=== PATIENT | female | born 1980 | race Caucasian/White ===

== ENCOUNTER → 2017-05-04 | Outpatient (CLI) | payer BC, OTHER ==
[~2017-05-04] VITALS: Ht 12.7 cm; Wt 65.8 kg
[~2017-05-04] MED LIST: ZANAFLEX4 MG PO
--- NOTE | ~2017-05-04 | HPC ---
[facility] [place] [address] PAIN MANAGEMENT CONSULTATION Name: IGGY MARQUIS Room #: [facility] [id number] Admission: 05/04/17 Attend Phys: Marco Antonio Renner DO Discharge: Date of : 84 Report #: [id number] THIS REPORT FOR: //name// CC: TEE Renner DATE OF SERVICE: 05/04/2017 DATE OF SERVICE: 05/04/2017 CHIEF COMPLAINT: Low back pain, lower extremity pain and paresthesias. HISTORY OF PRESENT ILLNESS: As you know, the patient is a very pleasant 36-year-old female who has been referred to our service for low back pain, right lower extremity pain and paresthesias. The patient indicates pain began 04/22/2017. The patient states that she had preexisting low back pain for which a Medrol Dosepak and rest and relaxation improved symptoms. Unfortunately, she had a return of symptoms while attempting to toss a full trashcan. This exacerbated her symptoms and she has been left with increasing pain issues. 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 The patient states her pain is periodic, describes the pain as shooting, aching, numbness, tingling, sharp, stabbing and tender, places current pain score 5/10, daily average of 5/10, worst the pain has been is 9/10. The patient states pain is exacerbated with "moving in the wrong way" and climbing stairs. The patient states pain has improved with ice, rest and relaxation. She has been referred to our service to discuss treatment options for suspected lumbar radiculopathy. PAST MEDICAL HISTORY: 1. Anemia. 2. Peptic ulcer disease. PAST SURGICAL HISTORY: 1. section x 3. 2. Cholecystectomy. SOCIAL HISTORY: The patient smokes 1/2 pack tobacco per day. She has done so for 22 years. Denies IV or illicit drug use. Denies any chronic alcohol use. She works as a caregiver, but has been out of work for the past week due to increasing low back pain, lower extremity pain with paresthesias. The patient denies being in litigation in regards to pain. She is not receiving disability benefits. She is accompanied by her significant other who was present in room today. REVIEW OF SYSTEMS: Positive for weight change, fatigue and weakness, kidney [facility] [address] [place] [address] PAIN MANAGEMENT CONSULTATION Name: IGGY MARQUIS Room #: REG CLI Nel#: [id number] Admission: 05/04/17 Attend Phys: Marco Antonio Renner DO Discharge: Date of : 84 Report #: [id number] stones, painful menses, irregular menses, low back pain, right lower extremity pain and paresthesias, chronic anemia. All other review of systems negative per 12-point review of systems other than those listed in history of present illness. Pain impact score 52/70 indicating severe interference of daily activities secondary to pain. ALLERGIES: SULFA, AND REGLAN. CURRENT MEDICATIONS: Tizanidine 4 mg 3 times a day p.r.n. IMAGING: MRI of lumbar spine obtained on 04/29/2017 shows T12-L1 unremarkable, L1-L2 unremarkable, L2-L3 unremarkable, L3-L4 unremarkable, L4-L5, no significant disk bulge protrusion identified. No significant central canal neural foraminal stenosis. L5-S1, small broad based posterior disk bulge with superimposed shallow central disk protrusion abutting the descending S1 nerve roots, left greater than right. Displacement of the left S1 nerve root is noted. PHYSICAL EXAMINATION: VITAL SIGNS: Blood pressure 118/81, pulse is 83, respiratory rate 14, unlabored. The patient is 100% on room air, height 5 feet 5 inches tall, weight 145 pounds, BMI calculated 24.1. GENERAL: Well developed, well nourished, well hydrated 36-year-old female who appears her stated age. She is placing current pain score today at 5/10. HEENT: Normocephalic, atraumatic. Pupils equal, round, reactive to light. Extraocular muscles are intact. Sclerae nonicteric without injection. NEUROLOGIC: Cranial nerves 2-12 grossly intact. Speech is fluent. The patient deemed a good historian. LUNGS: Clear, no wheeze, rhonchi or rales. CARDIOVASCULAR: Regular. No appreciable gallop or rub. ABDOMEN: Soft, nontender, nondistended, normoactive bowel sounds. EXTREMITIES: Show no clubbing, no cyanosis, no edema. MUSCULOSKELETAL: Lower extremity strength appears equal and symmetrical 5/5, intact to light touch from L1 through S2 dermatomes. Deep tendinous reflexes equal and symmetrical at patella and Achilles. Ankle clonus negative. Babinski is negative. Seated straight leg raising negative. Supine straight leg raising positive with S1 distribution. Gait is slightly antalgic. There is slight forward flexed lumbar spine during stance. ASSESSMENT: 1. Symptomatic lumbar radiculopathy. 2. Displacement of lumbar intervertebral disk with radiculopathy. PLAN: [facility] [address] [place] [address] PAIN MANAGEMENT CONSULTATION Name: IGGY MARQUIS Room #: REG CLI Nel#: [id number] Admission: 05/04/17 Attend Phys: Marco Antonio Renner DO Discharge: Date of : 84 Report #: [id number] 1. The patient has been referred to our service by her physician high school assistant principal, Roxanne Caraballo for evaluation for suspected lumbar radiculopathy. The patient and I discussed at length the correlation between the findings in the MRI and her current symptoms. It does appear the patient is suffering from an S1 radiculopathy involving the lower extremity. The patient and I discussed at length today the treatment options available for lumbar radicular pain. We discussed physical therapy, stretching exercises, core strengthening. We discussed medication management with addition of a neuropathic pain medication and consistent nonsteroidal anti-inflammatory. We discussed lumbar epidural steroid injections under fluoroscopic guidance, spinal cord stimulator therapy and surgical options. After reviewing the risks and benefits of all proposed treatment options, the patient chose to undergo lumbar epidural injection under fluoroscopic guidance. The patient was advised risks and benefits of a lumbar epidural injection. These risks include but are not necessarily limited to bleeding, bruising, infection, worsening pain, no relief of pain, also risk of temporary or permanent muscle weakness, temporary or permanent nerve damage, possible paralysis and . The patient states understood and wished to proceed. 2. No medication changes were made at today's visit. The patient will continue current medical therapy as previously prescribed. 3. The patient will return to our clinic in 31 days. At that time, review the efficacy of today's epidural injection and determine if next in the series of epidural injections would be necessary. 4. We wish to thank [place] for the referral of this patient to our clinic. We will keep you apprised of the patient's response to epidural injections and any other treatments we deemed appropriate for her lumbar radicular symptoms. Again, we wish to thank you for the opportunity to see this patient in consultation. PROCEDURE NOTE DESCRIPTION OF PROCEDURE: L5-S1 right paramedian epidural steroid injection under fluoroscopic guidance. This is the first procedure of the first series that the patient is undergoing. After obtaining written consent, the patient was taken back to the fluoroscopy suite, placed in a prone position with pillow under the abdomen to decrease lumbar lordosis. The skin overlying the lumbosacral area was then prepped and draped in aseptic fashion. The L5-S1 vertebral interspace was then identified by AP fluoroscopy. The skin and subcutaneous tissue overlying the target site of injection was anesthetized with 3 mL 1% lidocaine. A 20-gauge 3-1/2 inches Tuohy needle was then advanced under fluoroscopic guidance towards the epidural space using a right paramedian. The epidural [address] [address] PAIN MANAGEMENT CONSULTATION Name: IGGY MARQUIS Room #: REG Marvin Neumann#: [id number] Admission: 05/04/17 Attend Phys: Marco Antonio Renner DO Discharge: Date of : 84 Report #: [id number] space was identified using loss of resistance to air technique. After negative aspiration for heme or cerebrospinal fluid, a total of 1 mL of Omnipaque was injected. A lumbar epidurogram was confirmed using both AP and lateral fluoroscopy. After negative aspiration for heme or cerebrospinal fluid, 5 mL of solution containing 2 mL 40 mg per mL, 80 mg total triamcinolone, 3 mL of lidocaine 1% was injected in increments. Contrast spread was noted posterior epidural space. The needle was then retracted approximately half way and needle tract flushed with 1 mL of 1% lidocaine. Needle was then removed. There were no apparent sensory or motor deficits in the lower extremity following the procedure. A sterile bandage was placed over the injection site. The heart rate, pulse, oximetry and blood pressure were continuously monitored after the procedure. There were no apparent complications. The patient tolerated the procedure well and was carefully escorted to the recovery room in stable condition. There were no apparent complications. After meeting discharge criteria, the patient was then discharged home. <ELECTRONICALLY SIGNED> By: Marco Antonio Renner DO 05/10/17 [id number] Marco Antonio Renner DO /nt
[2017-05-04 10:18] VITALS: BP 118/81
== END ==
LOC: PAIN 07:15
DX: M51.16 Intervertebral disc disorders with radiculopathy, lumbar region (principal); K27.9 Peptic ulcer, site unspecified, unspecified as acute or chronic, without hemorrhage or perforation; Z90.49 Acquired absence of other specified parts of digestive tract; Z88.2 Allergy status to sulfonamides; Z88.8 Allergy status to other drugs, medicaments and biological substances; Z87.442 Personal history of urinary calculi; Z86.2 Personal history of diseases of the blood and blood-forming organs and certain disorders involving the immune mechanism